=== PATIENT | male | born 1965 | race African-American/Black ===

== ENCOUNTER 2020-10-24 14:58 | Emergency (ER) | payer OTHER ==
[~2020-10-24] VITALS: Ht 185.4 cm; Wt 81.0 kg
[2020-10-24] MEDS ORDERED: NEOM10SO12 RIGHT EAR (15:31)
[2020-10-24] MEDS ORDERED: IBUP-2028 MT (15:31)
[2020-10-24 15:50] VITALS: BP 122/70
== END 2020-10-24 15:51 | disposition home or self-care (01) ==
LOC: ER 14:58
DX: H60.501 Unspecified acute noninfective otitis externa, right ear (principal); I10 Essential (primary) hypertension
CPT/HCPCS: 99282

== ENCOUNTER 2023-03-22 13:17 | Emergency (ER) | payer MEDICAID, OTHER ==
[~2023-03-22] VITALS: Ht 185.4 cm; Wt 79.0 kg
[~2023-03-22 13:17] MED LIST: NEOM10SO12 RIGHT EAR
[2023-03-22 13:45] VITALS: BP 148/90; RESP 16; TEMP 98.8; O2SAT 98
[2023-03-22 13:58] VITALS: PULSE 96
== END 2023-03-22 17:24 | disposition home or self-care (01) ==
LOC: ER 13:17
DX: R76.11 Nonspecific reaction to tuberculin skin test without active tuberculosis (principal); I10 Essential (primary) hypertension
CPT/HCPCS: 71045; 99283

== ENCOUNTER 2024-09-15 09:45 | Emergency (ER) | payer MEDICAID ==
[~2024-09-15] VITALS: Ht 177.8 cm; Wt 86.0 kg
[~2024-09-15 09:45] MED LIST changes: -NEOM10SO12 RIGHT EAR; +NEOM10SO24 RIGHT EAR
[2024-09-15 10:00] VITALS: O2SAT 100
[2024-09-15] MEDS ORDERED: HYDR25TA MT (10:48)
[2024-09-15 11:10] VITALS: BP 116/62; PULSE 70; RESP 16; TEMP 36.9; O2SAT 100
== END 2024-09-15 11:19 | disposition home or self-care (01) ==
LOC: ER 10:37
DX: T78.3XXA Angioneurotic edema, initial encounter (principal); T46.4X5A Adverse effect of angiotensin-converting-enzyme inhibitors, initial encounter; I10 Essential (primary) hypertension; Z96.649 Presence of unspecified artificial hip joint; Z79.899 Other long term (current) drug therapy; Y92.89 Other specified places as the place of occurrence of the external cause
CPT/HCPCS: 99283